=== PATIENT | male | born 1940 | race Caucasian/White ===

== ENCOUNTER → 2016-12-12 | Outpatient (CLI) | payer OTHER ==
[~2016-12-12] MED LIST: ACETAMINOPHEN500 M2 PO; ALEVE220 M1 PO; ASPIRIN81 M1 PO; ASPIRIN81 M2 PO; BP MED; EFFIENT10 MG PO; HYDROCODON-ACE1 EAC7; HYDROCODONE; JANUVIA100 MG PO; METFORMIN HCL500 M1; METFORMIN PO; OMEPRAZOLE10 MG PO; TOPROL XL; TYLOX 5/500 CAP1 CAP PO; [UNRECOGNIZED DRUG - REMARK] PO
--- NOTE | ~2016-12-12 | ST ---
Unit #: [id number] #: [id number] Patient: NICK HERNANDEZ [id number] [address] [address] [id number] O MR#: [id number] NAME: NICK HERNANDEZ : 1940 SEX: M STUDY DATE/TIME: 12/12/2016 UNIT: [facility] ROOM: STUDY DESCRIPTION: Walking Lexiscan stress test Attending Physician: Abby Baron M.D. Referring Physician: Abby Baron M.D. Primary Care Physician: Jos Cano M.D. CARDIOLOGY REPORT PROCEDURE PERFORMED Walking Lexiscan Cardiolite stress test. REPORT Baseline EKG - Normal sinus rhythm with ventricular rate 64 beats per minute, Q waves in V1, poor R wave progression, left atrial abnormality, early repolarization in inferolateral leads. Lexiscan is a 4-minute test with Lexiscan being injected within the first minute, followed by Cardiolite. FINDINGS 1. EKG during the test was equivocal to baseline. No significant ST depression. Occasional premature ventricular complex. Occasional premature atrial complex. 2. The patient had no complaints of chest pain, palpitations. Had some lightheadedness and dizziness and had to sit down in the middle of the walking portion. 3. Maximum heart rate response was 129 beats per minute with a maximum blood pressure response of 188/90 mmHg. 4. Cardiolite was injected after Lexiscan within the first minute of the test. Radionuclide tests pending. Please correlate with nuclear images. 5. At the end of the recovery phase, the patient's blood pressure was 182/80 mmHg. The patient has been instructed to take his blood pressure medication as soon as possible. He was holding his beta-christina for the test. Dictated by... Yudy Cheng A.P.R.N. for Duncan Talbert/unique TD: 12/12/2016 09:37 JOB #: [id number] Unit #: [id number] #: [id number] Patient: NICK HERNANDEZ CARDIOLOGY REPORT Page 1 of 1 X Yudy Cheng APRN CARDIOLOGY REPORT
--- NOTE | ~2016-12-12 | TH ---
Unit #: [id number] #: [id number] Patient: NICK HERNANDEZ [id number] [facility]. [address] [address] [id number] O MR#: [id number] NAME: NICK HERNANDEZ : 1940 SEX: M STUDY DATE/TIME: 12/12/2016 UNIT: [facility] ROOM: STUDY DESCRIPTION: Lexiscan stress test - Nuclear Attending Physician: Abby Baron M.D. Referring Physician: Abby Baron M.D. Primary Care Physician: Jos Cano M.D. CARDIOLOGY REPORT PROCEDURE PERFORMED Lexiscan Cardiolite stress test - Nuclear portion. PROCEDURE Using technetium 99m-labeled Cardiolite, rest and stress SPECT images were obtained. Multiple SPECT images were obtained in various views, including horizontal and vertical long axis and short axis views of the left ventricle. Images were obtained by gated SPECT method. The patient was administered 11.12 mCi of Cardiolite at rest. The patient was administered 35.8 mCi of Cardiolite after Lexiscan infusion was completed. On the stress images, there is normal perfusion noted. The rest images show normal perfusion. Comparing the rest and stress images, there is no stress-induced ischemia noted. The left ventricular ejection fraction is calculated to be 62%. There is no focal wall motion abnormality seen. CONCLUSION 1. No stress-induced ischemia noted. 2. The left ventricular ejection fraction is calculated to be 62%. 3. There is no focal wall motion abnormality seen. 4. Normal Lexiscan Cardiolite stress test. Dictated by... Duncan Talbert/unique TD: 12/12/2016 15:19 JOB #: [id number] CARDIOLOGY REPORT Page 1 of 1 X Abby Baron MD <ELECTRONICALLY SIGNED> 01/27/17 1429 CARDIOLOGY REPORT
== END | disposition home or self-care (01) ==
LOC: CNUC 07:03
DX: Z02.1 Encounter for pre-employment examination (principal); I25.10 Atherosclerotic heart disease of native coronary artery without angina pectoris; I10 Essential (primary) hypertension
CPT/HCPCS: 78452; 93017; A9500; J2785